=== PATIENT | female | born 1970 | race Caucasian/White ===

== ENCOUNTER 2018-02-16 11:36 | Emergency (ER) | payer OTHER ==
[~2018-02-16] VITALS: Ht 165.1 cm; Wt 45.2 kg
[~2018-02-16 11:36] MED LIST: CIPRO500 MG PO; CLONAZEPAM0.5 MG PO; IBUPROFEN200 M1 PO; TRAZODONE HCL50 MG PO; VYVANSE20 MG PO; ZOFRAN ODT4 MG PO
[2018-02-16] MEDS ORDERED: KLONOPIN0.5 M1 PO (13:40)
[2018-02-16 13:48] VITALS: BP 138/98
== END 2018-02-16 13:49 | disposition home or self-care (01) ==
LOC: EME 11:36
DX: F41.9 Anxiety disorder, unspecified (principal); Z76.0 Encounter for issue of repeat prescription; F32.9 Major depressive disorder, single episode, unspecified; F17.200 Nicotine dependence, unspecified, uncomplicated; Z88.5 Allergy status to narcotic agent
CPT/HCPCS: 99281; 99284

== ENCOUNTER 2018-04-22 17:00 | Emergency (ER) | payer OTHER ==
[~2018-04-22] VITALS: Ht 162.6 cm; Wt 46.4 kg
[~2018-04-22 17:00] MED LIST changes: +KLONOPIN0.5 M1 PO
[2018-04-22] MEDS ORDERED: KLONOPIN0.5 M1 PO (18:08)
[2018-04-22 18:17] VITALS: BP 153/98
== END 2018-04-22 18:38 | disposition home or self-care (01) ==
LOC: EME 17:00
DX: F41.9 Anxiety disorder, unspecified (principal); Z76.0 Encounter for issue of repeat prescription; F32.9 Major depressive disorder, single episode, unspecified; R56.9 Unspecified convulsions; F17.200 Nicotine dependence, unspecified, uncomplicated; Z87.442 Personal history of urinary calculi; Z90.710 Acquired absence of both cervix and uterus; Z88.5 Allergy status to narcotic agent
CPT/HCPCS: 99281; 99284